=== PATIENT | male | born 1965 ===

== ENCOUNTER → 2025-01-26 | Outpatient (CLI) | payer BC ==
[~2025-01-26] MED LIST: AMOCLA875 PO; LISINOPRIL-HCT1 EACH PO; OXYC5 PO; Synthroid/Levo0.2 MG; VISBIOME 112.51 EACH PO
== END ==
LOC: LAB SHORT 07:35 → LAB 07:35
DX: L91.9 Hypertrophic disorder of the skin, unspecified (principal); L98.9 Disorder of the skin and subcutaneous tissue, unspecified
CPT/HCPCS: 88305